=== PATIENT | male | born 1935 | race Caucasian/White ===

== ENCOUNTER 2016-08-30 09:16 | Day surgery (SDC) | payer OTHER, MEDICARE ==
[~2016-08-30] VITALS: Ht 177.8 cm; Wt 77.3 kg
[~2016-08-30 09:16] MED LIST: AMOXICILLIN500 MG PO; ATORVASTATIN CA20 MG PO; BENADRYL25 MG PO; CELECOXIB200 MG PO; IRON325 M1 PO; OXYCODONE HCL5 MG PO; PROBIOTIC1 EAC1 PO; SENNA PLUS TAB1 EACH PO; XARELTO10 MG PO
[2016-08-30 09:56] VITALS: BP 147/71
[2016-08-30 14:09] VITALS: BP 175/80
[2016-08-30 14:36] VITALS: BP 155/81
== END 2016-08-30 14:45 | disposition home or self-care (01) ==
LOC: SDC 09:16
PROC: 0SGP0ZZ (ICD-10-PCS; principal; 2016-08-30)
DX: M20.41 Other hammer toe(s) (acquired), right foot (principal); M24.574 Contracture, right foot
CPT/HCPCS: C1769; J0690; J2250; J3010; S0020

== ENCOUNTER 2017-03-10 01:28 | Observation (INO) | payer OTHER, MEDICARE ==
[~2017-03-10] VITALS: Ht 154.9 cm; Wt 80.0 kg
[2017-03-10 02:05] LABS: HEMATOCRIT 43.2 % (38.0-50.0); MCH 30.1 PG (29.0-34.0); MCHC 33.1 G/DL (30.0-36.0); MCV 90.9 FL (86-99); MEAN PLAT.VOLUME 10.5 uM^3 (9.0-12.4); PLATELET COUNT 213 K/uL (156-360); RBC DIS.WIDTH-CV 12.4 % (11.8-14.6); RBC DIS.WIDTH-SD 41.3 % (39-53); RED BLOOD COUNT 4.75 M/uL (4.00-5.50)
[2017-03-10 02:13] LABS: CHLORIDE 105 mEq/L (99-109); POTASSIUM 4.6 mEq/L (3.7-5.4); SODIUM 142 mEq/L (136-147)
[2017-03-10 02:14] LABS: GLUCOSE 119 mg/dL (70-99)
[2017-03-10 02:16] LABS: ANION GAP 10 MEQ/L (2-14)
[2017-03-10 02:18] LABS: GFR ESTIMATE (CALCULATED) 57 mL/min/
[2017-03-10 02:19] LABS: UREA NITROGEN (BUN) 29 mg/dL (9-23)
[2017-03-10 02:25] LABS: TROP-I INTERPRETATION NEGATIVE; TROPONIN-I < 0.01 ng/mL (0.0-0.30)
[2017-03-10 02:41] LABS: TOTAL BILIRUBIN 0.3 mg/dL (0.0-1.0)
[2017-03-10 02:42] LABS: ALKALINE PHOSPHATASE 91 IU/L (3-129)
[2017-03-10 02:44] LABS: DIRECT BILIRUBIN 0.1 mg/dL (0.0-0.3)
[2017-03-10 02:45] LABS: LIPASE 42 U/L (1.0-51.0)
[2017-03-10 05:30] VITALS: BP 118/61
[2017-03-10 08:30] VITALS: BP 117/59
[2017-03-10] MEDS ORDERED: ATORVASTATIN CA20 MG PO (08:36)
[2017-03-10] MEDS ORDERED: VITAMIN D31000 UNIT PO (08:37)
[2017-03-10] MEDS ORDERED: LO-DOSE ASPIRIN81 M1 PO (08:38)
[2017-03-10 09:21] LABS: TROP-I INTERPRETATION NEGATIVE; TROPONIN-I < 0.01 ng/mL (0.0-0.30)
[2017-03-10] MEDS ORDERED: LIPITOR10 MG PO (09:38)
[2017-03-10] MEDS ORDERED: TYLENOL EXTRA500 MG PO (09:39)
[2017-03-10 11:29] VITALS: BP 121/56
== END 2017-03-10 12:21 | disposition home or self-care (01) ==
LOC: EME 01:28 → EDOF 04:03 → ENRESERV 04:06 → 5WEST 05:11
PROVIDERS: Internal Medicine
DX: M54.2 Cervicalgia (principal); M25.519 Pain in unspecified shoulder; R68.84 Jaw pain; R07.9 Chest pain, unspecified; E86.0 Dehydration; Z85.528 Personal history of other malignant neoplasm of kidney; Z90.5 Acquired absence of kidney; D36.11 Benign neoplasm of peripheral nerves and autonomic nervous system of face, head, and neck; E78.5 Hyperlipidemia, unspecified; K21.9 Gastro-esophageal reflux disease without esophagitis; Z87.442 Personal history of urinary calculi; Z96.652 Presence of left artificial knee joint; Z80.0 Family history of malignant neoplasm of digestive organs; Z79.82 Long term (current) use of aspirin; H91.90 Unspecified hearing loss, unspecified ear
CPT/HCPCS: 71020; 80048; 80076; 83690; 84484; 85027; 93005; 99281; 99285; G0378; J2270; J7030